=== PATIENT | male | born 1985 | race Caucasian/White ===

== ENCOUNTER 2021-10-29 20:51 | Inpatient (IN) | payer OTHER ==
[2021-10-29 21:08] VITALS: BMI 22.4
[2021-10-29] MEDS ORDERED: BISMUTH SUBSALICYLATE 524 MG/30 ML PO PRN (21:32)
[2021-10-29] MEDS ORDERED: NICOTINE POLACRILEX 2 MG GUM BUC PRN (21:32)
[2021-10-29] MEDS ORDERED: MAGNESIUM CITRATE 300 ML BOTTLE PO PRN (21:32)
[2021-10-29] MEDS ORDERED: ACETAMINOPHEN 325 MG TABLET (FP) PO PRN ×2 (21:32)
[2021-10-29] MEDS ORDERED: BENZOCAINE/MENTHOL (CHLORASEPTIC ) LOZENGE MM PRN (21:32)
[2021-10-29] MEDS ORDERED: guaiFENesin 200 MG/10 ML 10 ML UNIT-DOSE CUPS PO PRN (21:32)
[2021-10-29] MEDS ORDERED: methaDONE HCL 10 MG TABLET (FOR DETOX USE ONLY) PO ONE (21:32)
[2021-10-29] MEDS ORDERED: cloNIDine HCL 0.1 MG TABLET PO PRN (21:32)
[2021-10-29] MEDS ORDERED: IBUPROFEN 400 MG TABLET (FP) PO PRN (21:32)
[2021-10-29] MEDS ORDERED: LOPERAMIDE HCL 2 MG CAPSULE PO PRN (21:32)
[2021-10-29] MEDS ORDERED: MAG HYDROX/AL HYDROX/SIMETH 30 ML UNIT-DOSE CUP PO PRN (21:32)
[2021-10-29] MEDS ORDERED: PROCHLORPERAZINE MALEATE 5 MG TABLET PO PRN (21:32)
[2021-10-29] MEDS ORDERED: P-EPHED 60MG/TRIPROLIDI 2.5MG TABLET PO PRN (21:32)
[2021-10-29] MEDS ORDERED: NALOXONE HCL 0.4 MG/ML VIAL IM PRN (21:32)
[2021-10-29] MEDS ORDERED: methaDONE HCL 10 MG TABLET (FOR DETOX USE ONLY) ONE (21:43)
[2021-10-29] MEDS ORDERED: ACETAMINOPHEN 325 MG TABLET (FP) ONE (23:15)
[2021-10-29] MEDS ORDERED: diazePAM 5 MG TABLET ONE (23:15)
[2021-10-29] MEDS: diazePAM 5 MG TABLET PO SCH (23:27)
[2021-10-30] MEDS: diazePAM 5 MG TABLET PO PRN ×2 (00:58→22:32)
[2021-10-30] MEDS: METHOCARBAMOL 500 MG TABLET PO PRN ×3 (01:01→22:30)
[2021-10-30] MEDS: DICYCLOMINE HCL 10 MG CAPSULE PO PRN ×2 (01:01→22:35)
[2021-10-30] MEDS: THIAMINE HCL 100 MG TABLET (FP) PO SCH ×2 (01:02→22:31)
[2021-10-30] MEDS: MELATONIN 5 MG TABLETS PO SCH ×2 (01:03→22:30)
[2021-10-30] MEDS: diazePAM 5 MG TABLET PO SCH ×4 (06:34→23:00)
[2021-10-30] MEDS: AMOX TR/POT CLAV 875MG/125MG TABLETS (FP) PO SCH ×2 (08:19→18:49)
[2021-10-30] MEDS ORDERED: methaDONE HCL 10 MG TABLET (FOR DETOX USE ONLY) ONE (09:56)
[2021-10-30 10:01] LABS: HEMATOCRIT 38.9 % (35.4-49); MCH 27.2 pg (25.7-33.7); MCHC 33.3 g/dl (32.0-35.9); MEAN CELL VOLUME 81.6 fl (80-96); MEAN PLT VOLUME 6.9 fl (7.5-11.1); PLATELET COUNT 176 10^3/uL (134-434); RBC 4.77 M/mm3 (4.00-5.60); WHITE BLOOD COUNT 2.2 K/mm3 (4.0-10.0)
[2021-10-30 10:16] LABS: ALBUMIN 3.5 g/dl (3.4-5.0); BLOOD UREA NITROGEN 13.8 mg/dL (7-18)
[2021-10-30 10:19] LABS: CREATININE 0.7 mg/dL (0.55-1.3)
[2021-10-30 10:21] LABS: BILIRUBIN,TOTAL 0.9 mg/dL (0.2-1); TOT PROT 8.2 g/dl (6.4-8.2)
[2021-10-30] MEDS: PRENATAL VITAMINS W/ FOLIC ACID TABLET (FP) PO SCH (10:34)
[2021-10-30] MEDS: NICOTINE 14 MG/24 HOURS TOPICAL PATCH TD SCH (10:34)
[2021-10-30] MEDS ORDERED: FLU VACC QS2021-22(6MOS UP)/PF 60 MCG/0.5 ML SYRINGE IM ONE (12:00)
[2021-10-30] MEDS: POTASSIUM CHLORIDE ORAL LIQUID 20 MEQ/15 ML PO ONE (18:48)
[2021-10-30] MEDS: POTASSIUM CHLORIDE ORAL LIQUID 20 MEQ/15 ML PO SCH (23:02)
[2021-10-31] MEDS: diazePAM 5 MG TABLET PO SCH ×3 (08:28→22:58)
[2021-10-31] MEDS: AMOX TR/POT CLAV 875MG/125MG TABLETS (FP) PO SCH ×2 (08:28→21:37)
[2021-10-31] MEDS: diazePAM 5 MG TABLET PO PRN ×2 (08:28→21:40)
[2021-10-31] MEDS ORDERED: methaDONE HCL 10 MG TABLET (FOR DETOX USE ONLY) PO ONE (10:00)
[2021-10-31 10:07] LABS: SARS-CoV-2 NAA Not Detected (Not Detected)
[2021-10-31 10:16] LABS: HEMATOCRIT 43.3 % (35.4-49); HEMOGLOBIN 14.6 GM/dL (11.7-16.9); MCH 27.4 pg (25.7-33.7); MCHC 33.8 g/dl (32.0-35.9); MEAN CELL VOLUME 81.2 fl (80-96); MEAN PLT VOLUME 6.7 fl (7.5-11.1); PLATELET COUNT 188 10^3/uL (134-434); RBC 5.33 M/mm3 (4.00-5.60); RDW 14.8 % (11.9-15.9); WHITE BLOOD COUNT 2.5 K/mm3 (4.0-10.0)
[2021-10-31 10:31] LABS: CALCIUM 9.4 mg/dL (8.5-10.1)
[2021-10-31 10:33] LABS: ALBUMIN 3.9 g/dl (3.4-5.0); BLOOD UREA NITROGEN 14.1 mg/dL (7-18)
[2021-10-31 10:35] LABS: CREATININE 0.7 mg/dL (0.55-1.3)
[2021-10-31 10:36] LABS: BILIRUBIN,TOTAL 0.8 mg/dL (0.2-1); TOT PROT 8.9 g/dl (6.4-8.2)
[2021-10-31] MEDS: NICOTINE 14 MG/24 HOURS TOPICAL PATCH TD SCH (10:45)
[2021-10-31] MEDS: PRENATAL VITAMINS W/ FOLIC ACID TABLET (FP) PO SCH (10:45)
[2021-10-31] MEDS: POTASSIUM CHLORIDE ORAL LIQUID 20 MEQ/15 ML PO SCH ×2 (10:45→21:39)
[2021-10-31] MEDS: DICYCLOMINE HCL 10 MG CAPSULE PO PRN ×2 (10:47→21:39)
[2021-10-31] MEDS ORDERED: ONDANSETRON *ODT* 4 MG TABLET SL PRN (20:17)
[2021-10-31] MEDS ORDERED: QUEtiapine FUMARATE 25 MG TABLET PO ONE (20:22)
[2021-10-31] MEDS: METHOCARBAMOL 500 MG TABLET PO PRN (21:36)
[2021-10-31] MEDS: POTASSIUM CHLORIDE ORAL LIQUID 20 MEQ/15 ML PO ONE (21:38)
[2021-10-31] MEDS: MAGNESIUM HYDROX 2400MG/30ML ORAL SUSPENSION 30 ML CUP PO PRN (21:39)
[2021-10-31] MEDS: MELATONIN 5 MG TABLETS PO SCH (21:39)
[2021-10-31] MEDS: THIAMINE HCL 100 MG TABLET (FP) PO SCH (21:39)
[2021-11-01] MEDS: diazePAM 5 MG TABLET PO SCH ×2 (06:38→18:37)
[2021-11-01] MEDS: AMOX TR/POT CLAV 875MG/125MG TABLETS (FP) PO SCH ×2 (07:08→18:36)
[2021-11-01] MEDS ORDERED: methaDONE HCL 10 MG TABLET (FOR DETOX USE ONLY) ONE (09:20)
[2021-11-01] MEDS ORDERED: TRIMETHOBENZAMIDE HCL 200MG/2ML INJ IM ONE (09:45)
[2021-11-01] MEDS: NICOTINE 14 MG/24 HOURS TOPICAL PATCH TD SCH (11:08)
[2021-11-01] MEDS: MAGNESIUM HYDROX 2400MG/30ML ORAL SUSPENSION 30 ML CUP PO PRN (11:08)
[2021-11-01] MEDS: PRENATAL VITAMINS W/ FOLIC ACID TABLET (FP) PO SCH (11:09)
[2021-11-01] MEDS: DICYCLOMINE HCL 10 MG CAPSULE PO PRN ×2 (11:17→18:36)
[2021-11-01] MEDS ORDERED: QUEtiapine FUMARATE 50 MG TABLET PO ONE (16:28)
[2021-11-01] MEDS ORDERED: QUEtiapine FUMARATE 100 MG TABLET (FP) PO SCH (22:00)
[2021-11-01] MEDS ORDERED: QUEtiapine FUMARATE 50 MG TABLET PO SCH (22:00)
[2021-11-01] MEDS: THIAMINE HCL 100 MG TABLET (FP) PO SCH (22:58)
[2021-11-01] MEDS: MELATONIN 5 MG TABLETS PO SCH (22:58)
[2021-11-02] MEDS ORDERED: diazePAM 5 MG TABLET PO ONE (06:00)
[2021-11-02] MEDS: METHOCARBAMOL 500 MG TABLET PO PRN (06:17)
[2021-11-02] MEDS: AMOX TR/POT CLAV 875MG/125MG TABLETS (FP) PO SCH ×2 (09:39→22:39)
[2021-11-02] MEDS: PRENATAL VITAMINS W/ FOLIC ACID TABLET (FP) PO SCH (09:39)
[2021-11-02] MEDS: NICOTINE 14 MG/24 HOURS TOPICAL PATCH TD SCH (09:39)
[2021-11-02] MEDS ORDERED: methaDONE HCL 10 MG TABLET (FOR DETOX USE ONLY) PO ONE (10:00)
[2021-11-02] MEDS: QUEtiapine FUMARATE 100 MG TABLET (FP) PO SCH (13:21)
[2021-11-02] MEDS: MELATONIN 5 MG TABLETS PO SCH (22:39)
[2021-11-02] MEDS: QUEtiapine FUMARATE 200 MG TABLET PO SCH (22:39)
[2021-11-02] MEDS: THIAMINE HCL 100 MG TABLET (FP) PO SCH (22:39)
[2021-11-03] MEDS: AMOX TR/POT CLAV 875MG/125MG TABLETS (FP) PO SCH ×2 (08:56→17:21)
[2021-11-03] MEDS ORDERED: methaDONE HCL 10 MG TABLET (FOR DETOX USE ONLY) PO ONE (10:00)
[2021-11-03] MEDS: QUEtiapine FUMARATE 100 MG TABLET (FP) PO SCH (11:04)
[2021-11-03] MEDS: PRENATAL VITAMINS W/ FOLIC ACID TABLET (FP) PO SCH (11:04)
[2021-11-03] MEDS: NICOTINE 14 MG/24 HOURS TOPICAL PATCH TD SCH (11:10)
[2021-11-03] MEDS: NICOTINE 10 MG CARTRIDGE (INHALER) IH PRN (15:46)
[2021-11-03] MEDS: THIAMINE HCL 100 MG TABLET (FP) PO SCH (22:38)
[2021-11-03] MEDS: MELATONIN 5 MG TABLETS PO SCH (22:38)
[2021-11-03] MEDS: QUEtiapine FUMARATE 200 MG TABLET PO SCH (22:38)
[2021-11-04] MEDS: AMOX TR/POT CLAV 875MG/125MG TABLETS (FP) PO SCH (07:57)
[2021-11-04] MEDS: QUEtiapine FUMARATE 100 MG TABLET (FP) PO SCH (09:52)
[2021-11-04] MEDS: PRENATAL VITAMINS W/ FOLIC ACID TABLET (FP) PO SCH (09:52)
[2021-11-04] MEDS: NICOTINE 10 MG CARTRIDGE (INHALER) IH PRN ×2 (09:53→14:15)
[2021-11-04 17:47] VITALS: BP 144/94; PULSE 118; TEMP 97.8
== END 2021-11-04 17:04 | disposition home or self-care (01) | DRG 773 ==
LOC: YASAS 20:51 → Y3N 23:25
PROVIDERS: ADMIT Allergy & Immunology; ATTEND Surgery
PROC: HZ2ZZZZ Detoxification Services for Substance Abuse Treatment (ICD-10-PCS; principal; 2021-10-29)
DX: F11.23 Opioid dependence with withdrawal (principal); F13.20 Sedative, hypnotic or anxiolytic dependence, uncomplicated; F15.20 Other stimulant dependence, uncomplicated; F12.20 Cannabis dependence, uncomplicated; F17.210 Nicotine dependence, cigarettes, uncomplicated; F19.24 Other psychoactive substance dependence with psychoactive substance-induced mood disorder; F31.9 Bipolar disorder, unspecified; F43.10 Post-traumatic stress disorder, unspecified; F90.9 Attention-deficit hyperactivity disorder, unspecified type; Z21 Asymptomatic human immunodeficiency virus [HIV] infection status; L03.113 Cellulitis of right upper limb; L03.114 Cellulitis of left upper limb; Z86.19 Personal history of other infectious and parasitic diseases; Z59.00 Homelessness unspecified; Z56.0 Unemployment, unspecified
CPT/HCPCS: 36415; 80053; 85027; 86780; 93005; 93010; C9803-CS; Q0162; U0003; U0005